=== PATIENT | female | born 1990 | race Caucasian/White ===

== ENCOUNTER 2018-07-12 09:29 | Emergency (ER) | payer OTHER ==
[2018-07-12 09:35] VITALS: BP 145/75; TEMP 99.4; BMI 42.8
[2018-07-12] MEDS ORDERED: ACETAMINOPHEN 325 MG TABLET (FP) PO ONE (10:11)
[2018-07-12] MEDS ORDERED: ALBUTEROL SO4 2.5/IPRATROPIUM 0.5 INH SOL 3 ML VIAL.NEB. NEB ONE (10:11)
[2018-07-12] MEDS ORDERED: ONDANSETRON 4 MG TABLET PO PRN (10:11)
--- NOTE | 2018-07-12 10:18 | PDOC ---
History of Present Illness - General Chief Complaint: Respiratory Stated Complaint: SICK Time Seen by Provider: 07/12/18 10:03 History Source: Patient Exam Limitations: No Limitations - History of Present Illness Initial Comments: 07/12/18 10:12 28YOF with h/o chronic bronchitis (uses albuterol MDI prn) who p/w 2 days of cough, wheezing, SOB, fever (states up to 103 at home), nausea, NBNB vomiting of all food and flavored drinks. Her significant other was ill with similar symptoms last week. She did not have an influenza vaccination this year, otherwise is UTD on immunizations. Denies chance of being . She has been taking Nyquil for the symptoms, last dose this morning at 6 am. Denies ever having PNA. Past History - Past Medical History Allergies/Adverse Reactions: Allergies Allergy/AdvReac Type Severity Reaction Status Date / Time No Known Allergies Allergy Verified 07/12/18 09:35 Home Medications: Ambulatory Orders Ibuprofen [Motrin -] 600 mg PO TID #21 tablet 06/06/14 Oseltamivir Phosphate [Tamiflu] 75 mg PO BID #9 capsule 07/12/18 COPD: No - Suicide/Smoking/Psychosocial Hx Smoking Status: No Smoking History: Current every day smoker Number of Cigarettes Smoked Daily: 1 Information on smoking cessation initiated: No Hx Alcohol Use: No Drug/Substance Use Hx: Yes (MARIJUANA.) Substance Use Type: Marijuana Respiratory Specific PMHX - Complaint Specific PMHX Angina: No Bronchitis: No Pneumonia: No Pulmonary Embolus: No TB (Tuberculosis): No Review of Systems - Review of Systems Able to Perform ROS?: Yes Comments:: 07/12/18 10:13 GEN: fever, chills, malaise, generalized weakness, no weight change HEENT: no ear pain, sore throat, vision change, or eye pain CV: no chest pain, palpitations, lightheadedness, syncope, or edema RESP: cough, wheezing, or SOB GI: nausea, vomiting, no abdominal pain, diarrhea, constipation, or white/black/ bloody stool : no dysuria, hematuria, incontinence, retention, bleeding, or discharge MSK: no neck/back pain, muscle weakness/pain, or joint swelling/pain NEURO: no headache, seizure, vertigo, numbness, tingling, or focal weakness PSYCH: no substance use, no behavior change SKIN: no jaundice, no rash ROS otherwise negative except as noted in HPI *Physical Exam - Vital Signs Last Vital Signs Temp Pulse Resp BP Pulse Ox 99.4 F 120 H 20 145/75 99 07/12/18 09:32 07/12/18 09:32 07/12/18 09:32 07/12/18 09:32 07/12/18 09:32 - Physical Exam Comments: 07/12/18 10:14 GENERAL: tired but nontoxic appearing, obese, A/Ox4, no distress, answers questions appropriately, intermittent cough HEENT: PERRLA, EOMI, moist mucous membranes NECK/BACK: no midline ttp, no spinal stepoff or deformity, no hematoma, full ROM , neck supple CARDIOVASCULAR: a bit rapid rate, regular rhythm, normal S1S2, no MGR, strong peripheral pulses, capillary refill <2 seconds, extremities wwp, no edema LUNGS/RESPIRATORY: no respiratory distress, CTAB GI/ABDOMEN: symmetric [id number], normoactive BS, soft, no ttp, no midline pulsatile masses : no CVA tenderness EXTREMITIES: no muscle atrophy, no acute deformity SKIN: warm and dry, no pallor, no jaundice, no rash, no bruising, no skin breakdown, no cuts, no lesions NEUROLOGICAL: GCS 15, CN II-XII grossly intact, 5/5 strength proximally and distally, no facial droop Moderate Sedation - Procedure Monitoring Vital Signs: Procedure Monitoring Vital Signs Temperature 99.4 F 07/12/18 09:32 Pulse Rate 120 H 07/12/18 09:32 Respiratory Rate 20 07/12/18 09:32 Blood Pressure 145/75 07/12/18 09:32 O2 Sat by Pulse Oximetry (%) 99 07/12/18 09:32 Medical Decision Making - Medical Decision Making 07/12/18 10:15 Adult patient p/w fever, chills, nausea, vomiting, body aches. Initial Vital Signs Temp Pulse Resp BP Pulse Ox 99.4 F 120 H 20 145/75 99 07/12/18 09:32 07/12/18 09:32 07/12/18 09:32 07/12/18 09:32 07/12/18 09:32 Exam: As noted in Physical Exam section. DDX IBNLT: influenza, other viral syndrome, PNA/bronchitis, asthma/COPD exacerbation, laryngitis, tracheitis, CHF, etc. W/U ordered: Labs as noted below, influenza swab, EKG, CXR TX ordered: IVF, Zofran, Tylenol CXR: Nothing acute. Laboratory Tests 07/12/18 07/12/18 10:13 10:20 Urine HCG, Qual Negative Influenza A (Rapid) Positive A Influenza B (Rapid) Negative Reassessment: Patient states feeling much better, repeat exam benign. Vital Signs Temperature 99.4 F 07/12/18 09:32 Pulse Rate 117 H 07/12/18 12:08 Respiratory Rate 18 07/12/18 12:08 Blood Pressure 145/75 07/12/18 09:32 O2 Sat by Pulse Oximetry (%) 95 07/12/18 12:08 07/12/18 12:18 This patient has gotten significant relief of symptoms while in the ED. They are given a dose of TamiFlu after shared decision making and discussion of side effects. Remaining E-Rx is sent to their pharmacy. On last reassessment, vitals are wnl, pain is reasonably controlled, and exam is benign. Workup is not concerning for emergency-level pathology at this time. This patient is appropriate for discharge with close outpatient follow up. They are comfortable with this plan and will follow up with their primary care provider in 1-3 days. Specific return precautions are discussed and they will come back to the ER if necessary. *DC/Admit/Observation/Transfer Diagnosis at time of Disposition: Influenza A - Discharge Dispostion Disposition: HOME Condition at time of disposition: Stable Decision to Admit order: No - Prescriptions Prescriptions: Oseltamivir Phosphate [Tamiflu] 75 mg PO BID #9 capsule - Referrals Referrals: Delilah Do MD [Primary Care Provider] - - Patient Instructions Printed Discharge Instructions: DI for H1N1 Influenza -- Adult Additional Instructions: You were seen in the ER for influenza. We did an exam, imaging studies, and laboratory tests. Other than the positive flu swab, your workup was not concerning. We gave you Tylenol and an antiviral medication for the influenza. After our assessment, we do not believe you are having a medical emergency at this time, and we believe you are safe to go home. We sent a prescription for the TamiFlu antiviral to your pharmacy, so please take the whole course of this whether or not you feel better. Take Tylenol every 6 hours, up to 1000 mg per dose, for fever and discomfort. Please follow up with your primary care provider in 1-3 days. Call their clinic, tell them you were seen in the ER, and tell them you need a follow-up. If you have any new or worsening symptoms, especially worsening shortness of breath, blue lips, chest pain, lightheadedness , or passing out, please come back to the ER at any time (24 hours a day). If you are having severe or life threatening symptoms, or symptoms that make it unsafe to drive or have someone drive you, please call 911 - Post Discharge Activity
[2018-07-12] MEDS ORDERED: ONDANSETRON *ODT* 4 MG TABLET ONE (10:19)
[2018-07-12] MEDS ORDERED: ACETAMINOPHEN 325 MG TABLET (FP) ONE (10:19)
[2018-07-12] MEDS ORDERED: ALBUTEROL SO4 0.083% IH SOL 2.5 MG/3 ML VIAL.NEB. NEB ONE (10:34)
[2018-07-12 12:08] VITALS: PULSE 117
[2018-07-12] MEDS ORDERED: OSELTAMIVIR PHOSPHATE 75 MG CAPSULE PO ONE (12:18)
[2018-07-12] MEDS ORDERED: OSELTAMIVIR PHOSPHATE 75 MG CAPSULE ONE (12:20)
[2018-07-12] MEDS ORDERED: KETOROLAC TROMETHAMINE 30 MG/1 ML VIAL IVPUSH ONE (12:33)
[2018-07-12] MEDS ORDERED: KETOROLAC TROMETHAMINE 30 MG/1 ML VIAL ONE (12:37)
--- NOTE | 2018-07-12 14:58 | PDOC ---
Attending Attestation - Resident Resident Name: Nichol García - ED Attending Attestation I have performed the following: I have examined & evaluated the patient, The case was reviewed & discussed with the resident, I agree w/resident's findings & plan, Exceptions are as noted - HPI HPI: 07/12/18 14:53 28yo F hx chronic bronchitis (albuterol PRN) presents to the ED with non- productive cough, wheezing, fever with tmax 103, bodyaches, nausea and multiple episodes of NBNB emesis since yesterday. PArtner with similar sxs last week. Denies headache, stiff neck, focal weakness/numbness, cp, sob, abd pain, LE edema. Tried nyquil with minimal palliation. - Physicial Exam PE: 07/12/18 14:55 agree with resident exam - Medical Decision Making 07/12/18 14:56 28yo F hx chronic bronchitis presents to the ED with TOD, found to be flu A positive Pt is non toxic appearing, lungs are clear,no wheezing or crackles Feels much better with toradol/fluids Tamiflu initiated given sxs started yesterday Pt requests DC home, plans to f/u with PMD I discussed the physical exam findings, ancillary test results and final diagnoses with the patient. I answered all of the patient's questions. The patient was satisfied with the care received and felt comfortable with the discharge plan and treatment plan. The patient will call their primary care physician within 24 hours to arrange follow-up and will return to the Emergency Department with any new, persistent or worsening symptoms.
== END 2018-07-12 14:33 | disposition home or self-care (01) ==
LOC: JER 09:29
PROC: 3E0F7GC Introduction of Other Therapeutic Substance into Respiratory Tract, Via Natural or Artificial Opening (ICD-10-PCS; principal; 2018-07-12)
PROC: 3E0333Z Introduction of Anti-inflammatory into Peripheral Vein, Percutaneous Approach (ICD-10-PCS; 2018-07-12)
DX: J09.X2 Influenza due to identified novel influenza A virus with other respiratory manifestations (principal); F17.210 Nicotine dependence, cigarettes, uncomplicated; Z87.09 Personal history of other diseases of the respiratory system
CPT/HCPCS: 71046-TC-FY; 84703; 87804; 94640; 96374; 99282-25

== ENCOUNTER 2024-06-29 14:55 | Inpatient (IN) | payer OTHER ==
[2024-06-29 16:16] VITALS: BMI 49.8
[2024-06-29 16:27] LABS: BASO % 0.2 % (0-2.0); EOS % 1.3 % (0-4.5); HEMOGLOBIN 10.8 GM/dL (10.7-15.3); LYMPH % 19.8 % (8-40); MCH 27.5 pg (25.7-33.7); MCHC 32.7 g/dl (32.0-36.0); MEAN CELL VOLUME 84.1 fl (80-96); MEAN PLT VOLUME 9.5 fl (7.5-11.1); MONO % 5.6 % (3.8-10.2); NEUT % 73.1 % (42.8-82.8); PLATELET COUNT 247 10^3/uL (134-434); RBC 3.93 M/mm3 (3.60-5.2); RDW 14.6 % (11.6-15.6); WHITE BLOOD COUNT 10.6 K/mm3 (4.0-10.0)
[2024-06-29 16:34] LABS: INR 0.88 (0.83-1.09); PROTHROMBIN TIME (PATIENT) 10.2 SEC (9.7-13.0)
[2024-06-29 16:37] LABS: ACTIVATED PTT 26.9 SECONDS (25.2-36.5)
[2024-06-29] MEDS: DINOPROSTONE 10 MG VAGINAL SUPPOSITORY VG ONE (16:45)
[2024-06-29 16:49] LABS: POTASSIUM 4.8 mmol/L (3.5-5.1)
[2024-06-29 16:55] LABS: CREATININE 0.6 mg/dL (0.55-1.3)
[2024-06-29] MEDS ORDERED: ELECTROLYTE-148 SOLN 1,000 ML IV SCH (19:15)
[2024-06-29] MEDS: LACTATED RINGERS SOLUTION 1,000 ML/1,000 ML INFUS.BAG IV SCH (20:00)
[2024-06-30] MEDS ORDERED: BUTORPHANOL TARTRATE 2 MG/ML VIAL ONE (05:13)
[2024-06-30] MEDS ORDERED: PROMETHAZINE HCL 25 MG/1 ML VIAL ONE (05:13)
[2024-06-30] MEDS: PROMETHAZINE HCL 25 MG/1 ML VIAL IVPB PRN (05:30)
[2024-06-30] MEDS: BUTORPHANOL TARTRATE 2 MG/ML VIAL IVPB PRN (05:30)
[2024-06-30] MEDS ORDERED: OXYTOCIN 30 UNITS in 0.9% NS 30 UNIT/500 ML INFUS.BAG IVPB ONE (08:34)
[2024-06-30] MEDS: OXYTOCIN 30 UNITS in 0.9% NS 30 UNIT/500 ML INFUS.BAG IVPB SCH (08:40)
[2024-06-30] MEDS: OXYTOCIN 20 UNITS in 0.9% NS 20 UNIT/1,000 ML INFUS.BAG IV SCH (12:15)
[2024-06-30] MEDS ORDERED: FENTANYL/BUPIVACAINE/NS/PF - PCEA - 50 ML DISP.SYRIN EP ONE ×2 (14:50→19:27)
[2024-06-30] MEDS ORDERED: NALOXONE HCL 0.4 MG/ML VIAL IVPUSH PRN (15:11)
[2024-06-30] MEDS ORDERED: BUPIVACAINE HCL/PF 0.25% (2.5MG/ML) 10 ML VIAL ONE (15:13)
[2024-06-30] MEDS ORDERED: FENTANYL CITRATE/PF 50 MCG/ML VIAL ONE ×3 (15:13→21:39)
[2024-06-30] MEDS: FENTANYL/BUPIVACAINE/NS/PF - PCEA - 50 ML DISP.SYRIN EP SCH (15:30)
[2024-06-30] MEDS ORDERED: ONDANSETRON 4 MG/2 ML VIAL ONE ×2 (20:33→21:59)
[2024-06-30] MEDS ORDERED: ceFAZolin SODIUM 1 GM VIAL ONE (20:33)
[2024-06-30] MEDS ORDERED: LIDO 2%/EPI 1:200000 PRESRVFRE (20 ML SDVIAL) ONE (20:35)
[2024-06-30] MEDS ORDERED: OXYTOCIN 10 UNITS/ML VIAL ONE (21:20)
[2024-06-30] MEDS ORDERED: IBUPROFEN 800 MG/8 ML IJ IVPB PRN (22:01)
[2024-06-30] MEDS ORDERED: ONDANSETRON 4 MG/2 ML VIAL IVPB PRN (22:01)
[2024-06-30] MEDS ORDERED: ONDANSETRON 4 MG/2 ML VIAL IVPUSH PRN (22:23)
[2024-06-30] MEDS ORDERED: LORATADINE 10 MG TABLET PO PRN (22:23)
[2024-06-30] MEDS ORDERED: OXYTOCIN 20 UNITS in 0.9% NS 20 UNIT/1,000 ML INFUS.BAG IV ONE (22:56)
[2024-07-01] MEDS ORDERED: OXYTOCIN 20 UNITS in 0.9% NS 20 UNIT/1,000 ML INFUS.BAG IV ONE (00:25)
[2024-07-01] MEDS: SIMETHICONE 80 MG TAB.CHEW (FP) PO PRN (00:59)
[2024-07-01] MEDS: ACETAMINOPHEN 1000 MG/100 ML BAG IVPB PRN (00:59)
[2024-07-01 08:04] LABS: BASO % 0.3 % (0-2.0); EOS % 0.7 % (0-4.5); HEMATOCRIT 27.5 % (32.4-45.2); HEMOGLOBIN 9.1 GM/dL (10.7-15.3); LYMPH % 17.9 % (8-40); MCH 27.7 pg (25.7-33.7); MCHC 33.2 g/dl (32.0-36.0); MEAN CELL VOLUME 83.4 fl (80-96); MEAN PLT VOLUME 9.2 fl (7.5-11.1); MONO % 5.7 % (3.8-10.2); NEUT % 75.4 % (42.8-82.8); PLATELET COUNT 202 10^3/uL (134-434); RDW 14.6 % (11.6-15.6); WHITE BLOOD COUNT 11.6 K/mm3 (4.0-10.0)
[2024-07-01] MEDS: PRENATAL VITAMINS W/ FOLIC ACID TABLET (FP) PO SCH (10:33)
[2024-07-01] MEDS: FERROUS SO4 325 MG TABLET (FP) PO SCH (10:34)
[2024-07-01] MEDS: oxyCODONE HCL 5 MG TABLET PO PRN (10:43)
[2024-07-01] MEDS: LABETALOL HCL 100 MG TABLET (FP) PO SCH (10:50)
[2024-07-01] MEDS: IBUPROFEN 600 MG TABLET (FP) PO PRN (21:22)
[2024-07-01] MEDS: SENNOSIDES/DOCUSATE COMBO (SENNA PLUS) TABLET (UD) PO SCH (21:22)
[2024-07-01] MEDS ORDERED: BISACODYL 10 MG SUPP.RECT RC PRN (22:01)
[2024-07-02 08:47] VITALS: RESP 18
[2024-07-02] MEDS ORDERED: FERROUS GLUCONATE 324 MG TAB (FP) PO SCH (10:00)
[2024-07-02] MEDS: ACETAMINOPHEN 325 MG TABLET (FP) PO PRN (12:52)
[2024-07-03 11:08] VITALS: BP 122/80; PULSE 88; TEMP 97.6
== END 2024-07-03 14:55 | disposition home or self-care (01) | DRG 540 ==
LOC: JLDR 14:55 → J3W 07-01 00:23
PROVIDERS: ADMIT Specialist; ATTEND Specialist
PROC: 10D00Z1 Extraction of Products of Conception, Low, Open Approach (ICD-10-PCS; principal; 2024-06-30)
PROC: 3E0P7VZ Introduction of Hormone into Female Reproductive, Via Natural or Artificial Opening (ICD-10-PCS; 2024-06-30)
DX: O48.0 Post-term pregnancy (principal); Z3A.40 40 weeks gestation of pregnancy; O77.0 Labor and delivery complicated by meconium in amniotic fluid; O69.1XX0 Labor and delivery complicated by cord around neck, with compression, not applicable or unspecified; O61.0 Failed medical induction of labor; Z37.0 Single live birth
CPT/HCPCS: 36415; 80048; 85025; 85610; 85730; 86780; 86850; 86900; 86901; 88307-TC; J0131